=== PATIENT | male | born 1945 | race Caucasian/White ===

== ENCOUNTER → 2019-03-04 | Outpatient (CLI) | payer MEDICARE, OTHER | LOC: GMAE 10:45 | PROVIDERS: ATTEND Family Medicine | DX: R44.3 Hallucinations, unspecified (principal); R41.9 Unspecified symptoms and signs involving cognitive functions and awareness; I10 Essential (primary) hypertension; E11.9 Type 2 diabetes mellitus without complications ==

== ENCOUNTER → 2019-03-08 | Outpatient (CLI) | payer MEDICARE, OTHER ==
--- NOTE | 2019-03-09 08:31 | MRI ---
EXAM DESCRIPTION: Brain w/wo Contrast CLINICAL HISTORY: HALLUCINATIONS COMPARISON: None available TECHNIQUE: MRI of the brain is performed according to our usual protocol including multiplanar multi sequence technique. Post gadolinium imaging is performed following IV administration of 20 mL of Magnevist. FINDINGS: Sagittal T1 images show intact corpus callosum. Opacification of the sphenoid sinus is noted. Normal pituitary gland with normal T1 appearance of the brandin and medulla and upper cervical cord. Normal signal intensity within the clivus and calvarium. Axial T2 fat sat images reveal preservation of intracranial vascular flow voids. Normal hoyos matter T2 signal intensity. Scattered white matter hyperintensities. Normal ventricles with normal gyral and sulcal fold pattern. The globes appear intact and symmetrical. No abnormal fluid signal in the tympanic cavities or mastoid air cells. Mucosal thickening in the right and central frontal sinus air cells, anterior ethmoid air cells and in the bilateral maxillary sinuses with evidence of previous nasal antral window surgery with uncinectomy and ethmoidectomy. Opacification of the sphenoid sinus suggests chronic sinusitis perhaps with inspissated mucus or superimposed fungal infection. Axial flair images show focal lesion in the anterior limb of the right internal capsule consistent with an old lacunar infarct. Small white matter lesion in the left frontal lobe is most consistent with old ischemic microvascular disease with spotty less well defined abnormal increased signal intensity in other areas of the deep white matter and subcortical white matter of both cerebral hemispheres. Diffusion weighted images are negative for focal intense increased signal intensity in the brain parenchyma to suggest restricted diffusion. ADC mapping is negative. Axial T1 precontrast images show normal hoyos-white matter differentiation. No high signal intensity hemorrhagic lesion of the brain parenchyma. No subdural hematoma. Axial susceptibility weighted images are negative for focal signal loss to suggest abnormal brain parenchymal calcification or hemosiderin deposition. After IV contrast, axial and sagittal T1 images show normal enhancement of intracranial vessels. No enhancing intracranial mass or abnormal parenchymal enhancement to suggest disruption of the blood brain barrier. Coronal T1 postcontrast images show normal dural sinus enhancement with normal enhancement of the pituitary gland. 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 Chronic paranasal sinusitis. Electronically signed by: Saleem Ojeda MD 03/09/2019 8:29 AM CDT
== END ==
LOC: MRI 14:00
PROVIDERS: ATTEND Family Medicine
DX: R44.3 Hallucinations, unspecified (principal); J32.9 Chronic sinusitis, unspecified; I67.82 Cerebral ischemia; Z86.73 Personal history of transient ischemic attack (TIA), and cerebral infarction without residual deficits

== ENCOUNTER → 2019-04-13 | Outpatient (CLI) | payer MEDICARE, OTHER | LOC: GMAE 14:17 | PROVIDERS: ATTEND Family Medicine | DX: K50.90 Crohn's disease, unspecified, without complications (principal) ==

== ENCOUNTER → 2019-11-03 | Outpatient (CLI) | payer MEDICARE, OTHER | LOC: GMAE 10:51 | PROVIDERS: ATTEND Family Medicine | DX: D50.9 Iron deficiency anemia, unspecified (principal); E11.9 Type 2 diabetes mellitus without complications ==

== ENCOUNTER → 2020-02-07 | Outpatient (CLI) | payer MEDICARE, OTHER | LOC: GMAE 10:38 | PROVIDERS: ATTEND Family Medicine | DX: D50.9 Iron deficiency anemia, unspecified (principal); C61 Malignant neoplasm of prostate; I10 Essential (primary) hypertension; E11.9 Type 2 diabetes mellitus without complications ==